=== PATIENT | female | born 1995 | race Caucasian/White ===

== ENCOUNTER 2019-01-15 18:52 | Emergency (ER) | payer MEDICAID ==
[~2019-01-15] VITALS: Ht 172.7 cm; Wt 102.1 kg
[2019-01-15 19:02] VITALS: BP 125/63
[2019-01-15] MEDS ORDERED: LITHIUM CARBON600 MG PO (19:08)
[2019-01-15] MEDS ORDERED: QUETIAPINE FUM300 M1 PO (19:09)
[2019-01-15] MEDS ORDERED: HYDROXYCHLOROQ200 M1 PO (19:09)
[2019-01-15] MEDS ORDERED: ABILIFY 2 MG2 M1 IM (19:09)
[2019-01-15] MEDS ORDERED: KEFLEX500 M1 PO (19:22)
[2019-01-15] MEDS ORDERED: BACTRIM DS TAB1 EACH PO (19:22)
[2019-01-17] MEDS ORDERED: SEROQUEL XR 20200 MG (20:20)
[2019-01-17] MEDS ORDERED: VISTARIL 25 MG25 M1 (20:21)
[2019-01-17] MEDS ORDERED: LITHIUM CARBON300 M6 (20:21)
== END 2019-01-15 19:29 | disposition home or self-care (01) ==
LOC: M.ERS 18:52
DX: L03.115 Cellulitis of right lower limb (principal); F41.9 Anxiety disorder, unspecified; F31.9 Bipolar disorder, unspecified

== ENCOUNTER 2019-01-17 20:06 | Emergency (ER) | payer MEDICAID ==
[~2019-01-17] VITALS: Ht 172.7 cm; Wt 102.1 kg
[~2019-01-17 20:06] MED LIST: ABILIFY 2 MG2 M1 IM; BACTRIM DS TAB1 EACH PO; HYDROXYCHLOROQ200 M1 PO; KEFLEX500 M1 PO; LITHIUM CARBON600 MG PO; QUETIAPINE FUM300 M1 PO
[2019-01-17] MEDS ORDERED: SEROQUEL XR 20200 MG PO (20:20)
[2019-01-17] MEDS ORDERED: LITHIUM CARBON300 M6 PO (20:21)
[2019-01-17] MEDS ORDERED: VISTARIL 25 MG25 M1 PO (20:21)
[2019-01-17] MEDS ORDERED: NORCO 7.5-3251 EACH PO (21:54)
[2019-01-17] MEDS ORDERED: CLEOCIN HCL150 MG PO (21:54)
[2019-01-17 21:59] VITALS: BP 105/48
== END 2019-01-17 22:01 | disposition home or self-care (01) ==
LOC: M.ERS 20:06
DX: L03.115 Cellulitis of right lower limb (principal); F41.9 Anxiety disorder, unspecified; F32.9 Major depressive disorder, single episode, unspecified; Z87.891 Personal history of nicotine dependence

== ENCOUNTER 2019-01-18 17:37 | Inpatient (IN) | payer MEDICAID ==
[~2019-01-18] VITALS: Ht 172.7 cm; Wt 104.6 kg
[~2019-01-18 17:37] MED LIST changes: +CLEOCIN HCL150 MG PO; +LITHIUM CARBON300 M6 PO; +NORCO 7.5-3251 EACH PO; +SEROQUEL XR 20200 MG PO; +VISTARIL 25 MG25 M1 PO
[2019-01-18 17:46] VITALS: BP 133/76
[2019-01-18 18:22] LABS: ABSOLUTE BASOPHILS 0.1 thou/uL (0.0-0.2); ABSOLUTE EOSINOPHILS 0.2 thou/uL (0.0-0.7); ABSOLUTE LYMPHOCYTES 2.6 thou/uL (0.8-5.3); BASOPHILS 0.5 %; EOSINOPHILS 1.4 %; HEMATOCRIT 42.9 % (37.0-47.0); HEMOGLOBIN 14.8 gm/dL (12.0-15.0); LYMPHOCYTES 19.9 %; MCH 31.3 pg (26.0-34.0); MCHC 34.4 g/dL (28.0-37.0); MCV 90.7 fL (80.0-100.0); MONOCYTES 8.1 %; MPV 7.2 fl. (7.2-11.1); NUCLEATED RBCS 0 /100WBC; PLATELET COUNT* 320 thou/uL (150-400); POLYS 70.1 %; RBC 4.73 mil/uL (4.20-5.00); RDW-CV 12.6 % (10.5-14.5); WBC 12.8 thou/uL (4.0-11.0)
[2019-01-18 18:37] LABS: ALBUMIN 3.4 g/dL (3.4-5.0); CALCIUM 8.5 mg/dL (8.5-10.1); CREATININE 0.8 mg/dL (0.6-1.3); POTASSIUM 3.7 mmol/L (3.5-5.1); TOTAL BILIRUBIN 0.2 mg/dL (<0.1-1.0); TOTAL PROTEIN 7.9 g/dL (6.4-8.2)
[2019-01-18 19:21] VITALS: BP 131/70
[2019-01-18 21:02] VITALS: BP 119/66
[2019-01-19 05:13] LABS: ABSOLUTE BASOPHILS 0.1 thou/uL (0.0-0.2); ABSOLUTE EOSINOPHILS 0.2 thou/uL (0.0-0.7); ABSOLUTE LYMPHOCYTES 2.2 thou/uL (0.8-5.3); ABSOLUTE MONOCYTES 0.9 thou/uL (0.0-1.2); ABSOLUTE NEUTROPHILS 6.9 thou/uL (1.6-8.1); BASOPHILS 0.5 %; EOSINOPHILS 1.7 %; HEMATOCRIT 37.6 % (37.0-47.0); LYMPHOCYTES 21.8 %; MCH 30.8 pg (26.0-34.0); MCHC 33.6 g/dL (28.0-37.0); MCV 91.8 fL (80.0-100.0); MONOCYTES 8.6 %; MPV 7.4 fl. (7.2-11.1); NUCLEATED RBCS 0 /100WBC; PLATELET COUNT* 276 thou/uL (150-400); POLYS 67.4 %; RDW-CV 12.8 % (10.5-14.5); WBC 10.2 thou/uL (4.0-11.0)
[2019-01-19 05:24] LABS: HEMOGLOBIN 12.6 gm/dL (12.0-15.0)
[2019-01-19 05:39] LABS: ALBUMIN 2.6 g/dL (3.4-5.0); CALCIUM 8.2 mg/dL (8.5-10.1); CREATININE 0.9 mg/dL (0.6-1.3); MAGNESIUM 1.9 mg/dL (1.8-2.4); POTASSIUM 4.5 mmol/L (3.5-5.1); TOTAL BILIRUBIN 0.2 mg/dL (<0.1-1.0); TOTAL PROTEIN 6.3 g/dL (6.4-8.2)
[2019-01-19 07:30] VITALS: BP 93/58
[2019-01-19 16:31] VITALS: BP 114/65
[2019-01-19 21:15] VITALS: BP 110/56
[2019-01-20 08:00] VITALS: BP 125/59
[2019-01-20] MEDS ORDERED: CEFUROXIME500 MG PO (10:58)
[2019-01-20] MEDS ORDERED: MINOCYCLINE HC100 M2 PO (10:59)
[2019-01-20 13:46] VITALS: BP 125/59
== END 2019-01-20 14:40 | disposition home or self-care (01) | DRG 603 ==
LOC: M.ERS 17:37 → M.TBA-ER 18:04 → M.3W 18:04
PROVIDERS: Nurse Practitioner Family; ADMIT Family Medicine
DX: L03.115 Cellulitis of right lower limb (principal); F31.9 Bipolar disorder, unspecified; F41.9 Anxiety disorder, unspecified; R23.8 Other skin changes; E66.01 Morbid (severe) obesity due to excess calories; Z87.891 Personal history of nicotine dependence; Z68.35 Body mass index [BMI] 35.0-35.9, adult; Z79.899 Other long term (current) drug therapy